=== PATIENT | female | born 1990 | race Caucasian/White ===

== ENCOUNTER 2022-12-18 07:09 | Outpatient (REF) | payer OTHER, SELFPAY ==
--- NOTE | ~2022-12-18 | MR_ITS ---
EXAMINATION: MR KNEE WITHOUT CONTRAST, RIGHT CLINICAL INFORMATION: Injury, pain, effusion. COMPARISON: None available. TECHNIQUE: MRI of the knee without contrast was performed using routine sequences on a high-field scanner. FINDINGS: MENISCI: Medial Meniscus: Complex tear of the meniscus. Bucket-handle component to the tear, with torn meniscal tissue displaced into the intercondylar region and adjacent to the anterior horn.. Small caliber and tearing of the residual posterior horn. Small caliber undersurface tearing of the residual body. Tear involving the free edge and undersurface in the anterior horn. Lateral Meniscus: Intact LIGAMENTS: Cruciate: Increased T2 signal, ill-definition and irregularity of the ACL suspicious for partial-thickness tearing. Mild T2 signal in the proximal PCL, could reflect sprain injury. Collateral: Intact EXTENSOR MECHANISM: Intact ARTICULAR CARTILAGE/BONE: Patellofemoral Compartment: No focal cartilage loss Medial Compartment: Edema from bone bruise in the posterior and medial aspect of the tibial plateau. No focal cartilage loss Lateral Compartment: Mild bone contusion in the posterior aspect of the lateral tibial plateau. No focal cartilage loss. JOINT FLUID AND BURSAE: Small-moderate effusion. Subcutaneous edema. MR/MR knee RT wo con IMPRESSION: 1. Complex tear of the medial meniscus. Bucket-handle component to the tear, with torn meniscal tissue displaced into the intercondylar region and adjacent to the anterior horn. Tear of the residual posterior horn, body and anterior horn. 2. Findings suspicious for partial-thickness tearing of the ACL. Possible sprain PCL. 3. Bone bruise in the posterior/medial aspect of the medial tibial plateau, and the posterior aspect lateral tibial plateau. 4. Small-moderate effusion.
== END 2022-12-18 07:10 | disposition home or self-care (01) ==
LOC: HO.MRI 07:09
PROVIDERS: PCP Physician Assistant Medical; Visit Provider Emergency Medicine
DX: M25.561 Pain in right knee (principal)
CPT/HCPCS: 73721